=== PATIENT | male | born 1995 | race Caucasian/White ===

== ENCOUNTER 2017-11-08 12:33 | Emergency (ER) | payer OTHER, SELFPAY ==
--- NOTE | 2017-11-08 13:59 | RAD ---
RIGHT ANKLE RADIOGRAPHS THREE VIEWS: Date: 11-08-17 Provided Clinical History: Right ankle pain status post injury. FINDINGS: There is no evidence for fracture or other acute osseous abnormality. If there is persistent clinical concern, conservative management and follow up imaging are advised. IMPRESSION: As above. POS: OFF
--- NOTE | 2017-11-08 14:00 | RAD ---
RIGHT FOOT RADIOGRAPHS THREE VIEWS: 11/08/2017 PROVIDED CLINICAL HISTORY: Right foot pain, status post injury. FINDINGS: There is no evidence for fracture or other acute osseous abnormality. If there is persistent clinica l concern, conservative management and follow-up imaging are advised. IMPRESSION: As above. POS: OFF
== END 2017-11-08 14:16 | disposition home or self-care (01) ==
LOC: SCSER 12:33
DX: S93.401A Sprain of unspecified ligament of right ankle, initial encounter (principal); S90.31XA Contusion of right foot, initial encounter; J45.909 Unspecified asthma, uncomplicated; Z79.899 Other long term (current) drug therapy; W23.0XXA Caught, crushed, jammed, or pinched between moving objects, initial encounter